=== PATIENT | male | born 1980 | race Caucasian/White ===

== ENCOUNTER 2021-11-24 18:39 | Inpatient (IN) | payer BC ==
[2021-11-24] MEDS ORDERED: ALBUTEROL HFA INHALER INHALATION STA (19:10)
[2021-11-24 19:32] LABS: Basophils % (A) 0 %; Eosinophils % (A) 0 %; HCT 45.8 % (39.0-53.0); HGB 15.9 gm/dL (13.0-17.5); Lymphocytes # (A) 0.7 k/uL (1.0-4.8); Lymphocytes % (A) 5 %; MCH 31.2 pg (25.0-35.0); MCHC 34.8 g/dL (31.0-37.0); MCV 89.8 fL (80.0-100.0); Mean Platelet Volume 8.3; Monocytes # (A) 0.5 k/uL (0-1.0); Monocytes % (A) 4 %; Neutrophils % (A) 90 %; Platelet Count 214 k/uL (150-450); RDW 12.6 % (11.5-15.5); WBC 13.3 k/uL (3.8-10.6)
[2021-11-24 19:45] LABS: Partial Thromboplastin Time 24.7 sec (22.0-30.0); Prothrombin Time 10.3 sec (9.0-12.0)
[2021-11-24 19:50] LABS: ALT 24 U/L (4-49); AST 61 U/L (17-59); African American GFR (CKD) >90 (>60 ml/min/1.73 sqM); Albumin 4.3 g/dL (3.5-5.0); Alkaline Phosphatase 39 U/L (38-126); Anion Gap 15 mmol/L; Blood Urea Nitrogen 28 mg/dL (9-20); Calcium 9.2 mg/dL (8.4-10.2); Carbon Dioxide 17 mmol/L (22-30); Chloride 105 mmol/L (98-107); Glucose 155 mg/dL (74-99); Non-African American GFR(CKD) >90 (>60 ml/min/1.73 sqM); Potassium 5.5 mmol/L (3.5-5.1); Sodium 137 mmol/L (137-145); Total Bilirubin 1.2 mg/dL (0.2-1.3); Total Protein 7.8 g/dL (6.3-8.2)
--- NOTE | 2021-11-24 19:55 | XR ---
EXAMINATION TYPE: XR chest 2V DATE OF EXAM: 11/24/2021 COMPARISON: NONE HISTORY: Difficulty breathing TECHNIQUE: 2 views FINDINGS: There is patchy interstitial infiltrates in the mid and lower lung mace bilaterally. Hear t size is normal. There is no heart failure. There is mild blunting right costophrenic angle. IMPRESSION: There are some patchy interstitial pneumonia with small right pleural effusion. Normal he art.
[2021-11-24] MEDS ORDERED: DEXAMETHASONE SOD PHOSPHATE 10 MG/ML 1 ML VIAL IVP STA (19:56)
[2021-11-24] MEDS ORDERED: SODIUM CHLORIDE 0.9% 1,000 ML IV STA (20:06)
--- NOTE | 2021-11-24 22:11 | CT ---
EXAMINATION TYPE: CT chest angio for PE DATE OF EXAM: 11/24/2021 COMPARISON: None HISTORY: pe CT DLP: mGycm Automated exposure control for dose reduction was used. CONTRAST: Performed with IV Contrast, patient injected with mL of Isovue 370. There are Three-D postprocessed images. There is patchy predominantly interstitial infiltrates throughout both lungs. There is some coalescen t density at the posterior lung bases. There is some patchy atelectasis posterior lung bases. Heart s ize is normal. There is no pericardial effusion. There are no hilar masses. There is no mediastinal a denopathy. Thoracic aorta is intact. There is no aneurysm or dissection. There is no evidence of filling defect in the pulmonary arteries. The thoracic spine is intact. There is no compression fracture. Sternum is intact. I see no bony dest ructive process. IMPRESSION: No evidence of pulmonary embolism. Patchy bilateral predominantly interstitial pneumonia. There is so me airspace infiltrate and atelectasis at the posterior lung bases.
--- NOTE | 2021-11-24 22:24 | ED ---
SOB HPI - General Chief Complaint: Shortness of Breath Stated Complaint: SOB,Low O2 Sat. Time Seen by Provider: 11/24/21 19:10 Source: patient, RN notes reviewed Mode of arrival: ambulatory Limitations: no limitations - History of Present Illness Initial Comments: Patient is a 40-year-old male that presents to the emergency department complaining of shortness of breath and cough for the past all days. He notes he did test positive for Covid. He notes that he was followed by his primary caregiver and steroids and inhaler. He came back to ER today due to increasing cough and continuing symptoms. He was otherwise well-appearing. He denied any other issues or complaints. He denied chest pain headache nausea vomiting diarrhea constipation fever fatigue chills. - Related Data Home Medications Medication Instructions Recorded Confirmed Acetaminophen Tab [Tylenol Tab] 1,000 mg PO Q6HR PRN 11/24/21 11/24/21 Albuterol Inhaler [Ventolin Hfa 2 puff INHALATION RT-QID PRN 11/24/21 11/24/21 Inhaler] Ascorbic Acid [Vitamin C] 1,000 mg PO DAILY 11/24/21 11/24/21 Benzonatate [Benzonatate Perle] 200 mg PO TID PRN 11/24/21 11/24/21 Ibuprofen [Motrin Ib] 800 mg PO Q8H PRN 11/24/21 11/24/21 Multivitamins, Thera [Multivitamin 1 tab PO DAILY 11/24/21 11/24/21 (formulary)] predniSONE [Deltasone] 20 mg PO TID 11/24/21 11/24/21 Allergies Allergy/AdvReac Type Severity Reaction Status Date / Time No Known Allergies Allergy Verified 11/24/21 21:51 Review of Systems ROS Statement: Those systems with pertinent positive or pertinent negative responses have been documented in the HPI. ROS Other: All systems not noted in ROS Statement are negative. Past Medical History Past Medical History: No Reported History History of Any Multi-Drug Resistant Organisms: None Reported Past Surgical History: No Surgical Hx Reported Past Psychological History: No Psychological Hx Reported Smoking Status: Never smoker Past Alcohol Use History: Occasional Past Drug Use History: None Reported General Exam Limitations: no limitations General appearance: alert, in no apparent distress Head exam: Present: atraumatic, normocephalic, normal inspection Eye exam: Present: normal appearance, PERRL, EOMI. Absent: scleral icterus, conjunctival injection, periorbital swelling ENT exam: Present: normal exam, mucous membranes moist Neck exam: Present: normal inspection Respiratory exam: Present: normal lung sounds bilaterally. Absent: respiratory distress, wheezes, rales, rhonchi, stridor Cardiovascular Exam: Present: regular rate, normal rhythm, normal heart sounds. Absent: systolic murmur, diastolic murmur, rubs, gallop, clicks GI/Abdominal exam: Present: soft, normal bowel sounds. Absent: distended, tenderness, guarding, rebound, rigid Extremities exam: Present: normal inspection, full ROM, normal capillary refill. Absent: tenderness, pedal edema, joint swelling, calf tenderness Neurological exam: Present: alert, oriented X3 Psychiatric exam: Present: normal affect, normal mood Skin exam: Present: warm, dry, intact, normal color. Absent: rash Course Vital Signs 11/24/21 11/24/21 11/24/21 19:01 22:30 22:36 Temperature 98.7 F Pulse Rate 86 79 79 Respiratory 20 18 18 Rate Blood Pressure 127/74 120/69 O2 Sat by Pulse 92 L 88 L 94 L Oximetry Procedures - [place] Protocol (Time Out) Nurse: Marbin Rivera Medical Decision Making - Medical Decision Making 40-year-old male complaining of shortness of breath and continuing Covid symptoms. Labs, chest x-ray, EKG, 10 mg Decadron, albuterol inhaler ordered. Labs: White blood cells 13.3, d-dimer 0.[address] of the chest ordered. CMP shows lactic acid 2.3 rest of labs are unremarkable. Chest x-ray and computed tomography scan both show interstitial pneumonia. computed tomography scan patient was coughing and was unable to breathe, 2 L of oxygen via nasal cannula ordered. discussed with Dr. Paz, Patient will be admitted for hypoxia and Covid. [facility] physicians group was consulted and will accept the admit. - Lab Data Result diagrams: 11/24/21 19:22 11/24/21 19:22 Lab Results 11/24/21 11/24/21 11/24/21 Range/Units 19:22 19:22 19: WBC 13.3 H (3.8-10.6) k/uL RBC 5.10 (4.30-5.90) m/uL Hgb 15.9 (13.0-17.5) gm/dL Hct 45.8 (39.0-53.0) % MCV 89.8 (80.0-100.0) fL MCH 31.2 (25.0-35.0) pg MCHC 34.8 (31.0-37.0) g/dL RDW 12.6 (11.5-15.5) % Plt Count 214 (150-450) k/uL MPV 8.3 Neutrophils % 90 % Lymphocytes % 5 % Monocytes % 4 % Eosinophils % 0 % Basophils % 0 % Neutrophils # 12.0 H (1.3-7.7) k/uL Lymphocytes # 0.7 L (1.0-4.8) k/uL Monocytes # 0.5 (0-1.0) k/uL Eosinophils # 0.0 (0-0.7) k/uL Basophils # 0.0 (0-0.2) k/uL PT 10.3 (9.0-12.0) sec INR 1.0 (<1.2) APTT 24.7 (22.0-30.0) sec D-Dimer 0.62 H (<0.60) mg/L FEU Sodium 137 (137-145) mmol/L Potassium 5.5 H (3.5-5.1) mmol/L Chloride 105 (98-107) mmol/L Carbon Dioxide 17 L (22-30) mmol/L Anion Gap 15 mmol/L BUN 28 H (9-20) mg/dL Creatinine 0.62 L (0.66-1.25) mg/dL Est GFR (CKD-EPI)AfAm >90 (>60 ml/min/1.73 sqM) Est GFR (CKD-EPI)NonAf >90 (>60 ml/min/1.73 sqM) Glucose 155 H (74-99) mg/dL Lactic Ac Sepsis Rflx Plasma Lactic Acid Rolly (0.7-2.0) mmol/L Calcium 9.2 (8.4-10.2) mg/dL Total Bilirubin 1.2 (0.2-1.3) mg/dL AST 61 H (17-59) U/L ALT 24 (4-49) U/L Alkaline Phosphatase 39 (38-126) U/L Troponin I (0.000-0.034) ng/mL NT-Pro-B Natriuret Pep pg/mL Total Protein 7.8 (6.3-8.2) g/dL Albumin 4.3 (3.5-5.0) g/dL 11/24/21 11/24/21 11/24/21 Range/Units 19:22 19:22 19:22 WBC (3.8-10.6) k/uL RBC (4.30-5.90) m/uL Hgb (13.0-17.5) gm/dL Hct (39.0-53.0) % MCV (80.0-100.0) fL MCH (25.0-35.0) pg MCHC (31.0-37.0) g/dL RDW (11.5-15.5) % Plt Count (150-450) k/uL MPV Neutrophils % % Lymphocytes % % Monocytes % % Eosinophils % % Basophils % % Neutrophils # (1.3-7.7) k/uL Lymphocytes # (1.0-4.8) k/uL Monocytes # (0-1.0) k/uL Eosinophils # (0-0.7) k/uL Basophils # (0-0.2) k/uL PT (9.0-12.0) sec INR (<1.2) APTT (22.0-30.0) sec D-Dimer (<0.60) mg/L FEU Sodium (137-145) mmol/L Potassium (3.5-5.1) mmol/L Chloride (98-107) mmol/L Carbon Dioxide (22-30) mmol/L Anion Gap mmol/L BUN (9-20) mg/dL Creatinine (0.66-1.25) mg/dL Est GFR (CKD-EPI)AfAm (>60 ml/min/1.73 sqM) Est GFR (CKD-EPI)NonAf (>60 ml/min/1.73 sqM) Glucose (74-99) mg/dL Lactic Ac Sepsis Rflx Plasma Lactic Acid Rolly 2.3 H* (0.7-2.0) mmol/L Calcium (8.4-10.2) mg/dL Total Bilirubin (0.2-1.3) mg/dL AST (17-59) U/L ALT (4-49) U/L Alkaline Phosphatase (38-126) U/L Troponin I <0.012 (0.000-0.034) ng/mL NT-Pro-B Natriuret Pep 104 pg/mL Total Protein (6.3-8.2) g/dL Albumin (3.5-5.0) g/dL 11/24/21 11/24/21 Range/Units 19:50 22:30 WBC (3.8-10.6) k/uL RBC (4.30-5.90) m/uL Hgb (13.0-17.5) gm/dL Hct (39.0-53.0) % MCV (80.0-100.0) fL MCH (25.0-35.0) pg MCHC (31.0-37.0) g/dL RDW (11.5-15.5) % Plt Count (150-450) k/uL MPV Neutrophils % % Lymphocytes % % Monocytes % % Eosinophils % % Basophils % % Neutrophils # (1.3-7.7) k/uL Lymphocytes # (1.0-4.8) k/uL Monocytes # (0-1.0) k/uL Eosinophils # (0-0.7) k/uL Basophils # (0-0.2) k/uL PT (9.0-12.0) sec INR (<1.2) APTT (22.0-30.0) sec D-Dimer (<0.60) mg/L FEU Sodium (137-145) mmol/L Potassium (3.5-5.1) mmol/L Chloride (98-107) mmol/L Carbon Dioxide (22-30) mmol/L Anion Gap mmol/L BUN (9-20) mg/dL Creatinine (0.66-1.25) mg/dL Est GFR (CKD-EPI)AfAm (>60 ml/min/1.73 sqM) Est GFR (CKD-EPI)NonAf (>60 ml/min/1.73 sqM) Glucose (74-99) mg/dL Lactic Ac Sepsis Rflx Y Plasma Lactic Acid Rolly 1.2 (0.7-2.0) mmol/L Calcium (8.4-10.2) mg/dL Total Bilirubin (0.2-1.3) mg/dL AST (17-59) U/L ALT (4-49) U/L Alkaline Phosphatase (38-126) U/L Troponin I (0.000-0.034) ng/mL NT-Pro-B Natriuret Pep pg/mL Total Protein (6.3-8.2) g/dL Albumin (3.5-5.0) g/dL - EKG Data -: EKG Interpreted by Me EKG shows normal: sinus rhythm Rate: normal EKG Comments: Ventricular rate 76 bpm, DC interval 150 ms, QRS duration 92 ms, QTC 429 ms, normal sinus rhythm, normal ECG. - Radiology Data Radiology results: report reviewed, image reviewed Chest x-ray: There is some patchy interstitial pneumonia with small right pleural effusion. CT of the chest: No evidence of pulmonary embolus. Patchy bilateral predominantly interstitial pneumonia there is some airspace infiltrate and atelectasis at the posterior lung bases. Disposition Clinical Impression: Pneumonia due to COVID-19 virus, Hypoxia Disposition: ADMITTED IP TO THIS HOSP Condition: Stable Is patient prescribed a controlled substance at d/c from ED?: No Referrals: Charles Hathaway DO [Primary Care Provider] - 1-2 days Time of Disposition: 23:03
[2021-11-24] MEDS ORDERED: NALOXONE 0.4 MG/ML 1 ML VIAL IV PRN (22:54)
[2021-11-24] MEDS: SODIUM CHLORIDE 0.9% 1,000 ML IV SCH (23:31)
--- NOTE | 2021-11-25 05:54 | P.HPIM ---
History of Present Illness H&P Date: 11/24/21 Chief Complaint: Hypoxemia 40-year-old male with no significant past medical history Patient comes in due to hypoxemia home. He was diagnosed with Covid about 12 days ago. Patient is unvaccinated. He initially had symptoms of upper respiratory infection coughing body aches loss of smell and taste however he started improving except for his coughing and shortness of breath. His has been checking his oxygen and noted his oxygen was low in the upper 80s today for which she recommended that she comes hospital for evaluation. He's been taking inhalers at home along with prednisone Upon evaluation in the ED his oxygen saturation was in the low 90s and then dropped to 8788 percent while on CAT scan, computed tomography scan showed interstitial pneumonia. This time patient tested negative for Covid in the hospital However he continues to report fevers and chills along with productive cough. He was initiated on oxygen his oxygen saturation has improved to 92% patient admitted for further monitoring and evaluation Patient is not a smoker, denies any drug abuse Review of Systems Pertinent positives as noted in HPI. All other systems were reviewed and are negative Past Medical History Past Medical History: No Reported History History of Any Multi-Drug Resistant Organisms: None Reported Past Surgical History: No Surgical Hx Reported Past Psychological History: No Psychological Hx Reported Smoking Status: Never smoker Past Alcohol Use History: Occasional Past Drug Use History: None Reported - Past Family History Family Family Medical History: No Reported History Medications and Allergies Home Medications Medication Instructions Recorded Confirmed Type Acetaminophen Tab [Tylenol Tab] 1,000 mg PO Q6HR PRN 11/24/21 11/24/21 History Albuterol Inhaler [Ventolin Hfa 2 puff INHALATION RT-QID PRN 11/24/21 11/24/21 History Inhaler] Ascorbic Acid [Vitamin C] 1,000 mg PO DAILY 11/24/21 11/24/21 History Benzonatate [Benzonatate Perle] 200 mg PO TID PRN 11/24/21 11/24/21 History Ibuprofen [Motrin Ib] 800 mg PO Q8H PRN 11/24/21 11/24/21 History Multivitamins, Thera [Multivitamin 1 tab PO DAILY 11/24/21 11/24/21 History (formulary)] predniSONE [Deltasone] 20 mg PO TID 11/24/21 11/24/21 History Allergies Allergy/AdvReac Type Severity Reaction Status Date / Time No Known Allergies Allergy Verified 11/24/21 21:51 Physical Exam Vitals: Vital Signs Temp Pulse Pulse Resp BP BP Pulse Ox 11/25/21 02:00 98.9 F 79 16 107/66 94 L 11/25/21 00:33 98.4 F 74 17 115/68 91 L 11/24/21 22:36 79 18 94 L 11/24/21 22:30 79 18 120/69 88 L 11/24/21 19:01 98.7 F 86 20 127/74 92 L Intake and Output 11/24/21 11/24/21 11/25/21 14:59 22:59 06:59 Other: Weight 97.522 kg 97.522 kg Constitutional: No acute distress, conversant, pleasant Eyes: Anicteric sclerae, moist conjunctiva, Pupils equal round reactive to light ENMT: NC/AT Oropharynx clear, no erythema, or exudates Neck: Supple, no masses, or JVD No carotid bruits No thyromegaly Lungs: Clear to auscultation Clear to percussion Normal respiratory effort, no accessory muscle use Cardiovascular: Heart regular in rate and rhythm, No murmurs, gallops, or rubs No peripheral edema Abdominal: Soft Nontender, no guarding, rebound or rigidity Abdomen moving with respiration Normoactive bowel sounds No hepatomegaly, No splenomegaly No palpable mass No abdominal wall hernia noted Skin: Normal temperature, tone, texture, turgor No induration No subcutaneous nodules No rash, lesions No ulcers Extremities: No digital cyanosis No clubbing Pedal pulses intact and symmetrical Radial pulses intact and symmetrical No calf tenderness Psychiatric: Alert and oriented to person, place and time Appropriate affect fair judgement Neuro Muscles Strength 5/5 in all 4 extremities Sensation to light touch grossly present throughout Cranial nerves II-XII grossly intact No focal sensory deficits Lymphatics: no palpable cervical or supraclavicular , or inguinal lymph nodes Results CBC & Chem 7: 11/24/21 19:22 11/24/21 19:22 Labs: Abnormal Lab Results - Last 24 Hours (Table) 11/24/21 11/24/21 11/24/21 Range/Units 19:22 19:22 19: WBC 13.3 H (3.8-10.6) k/uL Neutrophils # 12.0 H (1.3-7.7) k/uL Lymphocytes # 0.7 L (1.0-4.8) k/uL D-Dimer 0.62 H (<0.60) mg/L FEU Potassium 5.5 H (3.5-5.1) mmol/L Carbon Dioxide 17 L (22-30) mmol/L BUN 28 H (9-20) mg/dL Creatinine 0.62 L (0.66-1.25) mg/dL Glucose 155 H (74-99) mg/dL Plasma Lactic Acid Rolly (0.7-2.0) mmol/L AST 61 H (17-59) U/L 11/24/21 Range/Units 19:22 WBC (3.8-10.6) k/uL Neutrophils # (1.3-7.7) k/uL Lymphocytes # (1.0-4.8) k/uL D-Dimer (<0.60) mg/L FEU Potassium (3.5-5.1) mmol/L Carbon Dioxide (22-30) mmol/L BUN (9-20) mg/dL Creatinine (0.66-1.25) mg/dL Glucose (74-99) mg/dL Plasma Lactic Acid Rolly 2.3 H* (0.7-2.0) mmol/L AST (17-59) U/L Thrombosis Risk Factor Assmnt - Choose All That Apply Each Factor Represents 1 point: Age 41-60 years Thrombosis Risk Factor Assessment Total Risk Factor Score: 1 Thrombosis Risk Factor Assessment Level: Low Risk Assessment and Plan Assessment: Acute hypoxic respiratory failure Post Covid pneumonia Supportive care Initiated on supplemental oxygen Dexamethasone DVT prophylaxis with Lovenox Supportive care Symptomatically control Tessalon Perles for cough when necessary Albuterol inhaler as needed Patient is full code DVT prophylaxis Lovenox daily Anticipated length of stay less than 2 midnights
[2021-11-25] MEDS ORDERED: BENZONATATE 100 MG CAP PO PRN (06:00)
[2021-11-25] MEDS: SODIUM CHLORIDE 0.9% 1,000 ML IV SCH ×3 (09:14→22:00)
[2021-11-25 09:25] LABS: Basophils % (A) 0 %; Eosinophils % (A) 0 %; HCT 42.3 % (39.0-53.0); HGB 14.2 gm/dL (13.0-17.5); Lymphocytes # (A) 0.6 k/uL (1.0-4.8); Lymphocytes % (A) 5 %; MCH 30.6 pg (25.0-35.0); MCHC 33.4 g/dL (31.0-37.0); MCV 91.4 fL (80.0-100.0); Mean Platelet Volume 7.9; Monocytes # (A) 0.5 k/uL (0-1.0); Monocytes % (A) 4 %; Neutrophils # (A) 11.3 k/uL (1.3-7.7); Neutrophils % (A) 90 %; Platelet Count 221 k/uL (150-450); RBC 4.63 m/uL (4.30-5.90); RDW 12.8 % (11.5-15.5); WBC 12.5 k/uL (3.8-10.6)
[2021-11-25 09:41] LABS: African American GFR (CKD) >90 (>60 ml/min/1.73 sqM); Anion Gap 7 mmol/L; Blood Urea Nitrogen 19 mg/dL (9-20); Calcium 8.4 mg/dL (8.4-10.2); Carbon Dioxide 23 mmol/L (22-30); Chloride 112 mmol/L (98-107); Glucose 153 mg/dL (74-99); Magnesium 2.3 mg/dL (1.6-2.3); Non-African American GFR(CKD) >90 (>60 ml/min/1.73 sqM); Potassium 4.7 mmol/L (3.5-5.1); Sodium 142 mmol/L (137-145)
[2021-11-25] MEDS: ENOXAPARIN 40 MG/0.4 ML SYRINGE SQ SCH (10:25)
[2021-11-25] MEDS: DEXAMETHASONE SOD PHOSPHATE 10 MG/ML 1 ML VIAL IVP SCH (10:25)
--- NOTE | 2021-11-25 12:20 | P.PN ---
Subjective Progress Note Date: 11/25/21 Principal diagnosis: sob Doing well. Still having sob when he moves around. On 4L of O2 now. Still having cough. No chest pain. Objective - Vital Signs Vital signs: Vital Signs Temp 98.2 F 11/25/21 09:20 Pulse 72 11/25/21 09:20 Resp 17 11/25/21 09:20 BP 102/61 11/25/21 09:20 Pulse Ox 93 L 11/25/21 09:20 Intake & Output 11/24/21 11/25/21 11/25/21 18:59 06:59 18:59 Intake Total 1040 Balance 1040 Weight 97.522 kg Intake: Intake, IV Titration 1040 Amount Sodium Chloride 0.9% 1, 1040 000 ml @ 130 mls/hr IV . Q7H42M [facility] Rx#:[id number] Other: # Voids 1 - Exam Constitutional: No acute distress, conversant, pleasant Eyes:Anicteric sclerae, moist conjunctiva, no lid-lag, PERRLA, ENMT: Oropharynx clear, no erythema, exudates Neck: Supple, FROM, no masses, or JVD, No carotid bruits, No thyromegaly Lungs: Clear to auscultation, Clear to percussion, Normal respiratory effort, no accessory muscle use Cardiovascular: Heart regular in rate and rhythm, No murmurs, gallops, or rubs, No peripheral edema Abdominal: Soft, Nontender, no guarding, rebound or rigidity, Normoactive bowel sounds, No hepatomegaly, No splenomegaly, No palpable mass Skin: Normal temperature, tone, texture, turgor, no induration, No subcutaneous nodules, No rash, lesions, No ulcers Extremities: No digital cyanosis, No clubbing, Pedal pulses intact and symmetrical, Radial pulses intact and symmetrical, No calf tenderness Psychiatric: Alert and oriented to person, place and time, appropriate affect, intact judgement Neuro: Muscles Strength 5/5 in all 4 extremities, Sensation to light touch grossly present throughout, Cranial nerves II-XII grossly intact, no focal sensory deficits - Labs CBC & Chem 7: 11/25/21 09:15 11/25/21 09:15 Labs: Abnormal Lab Results - Last 24 Hours (Table) 11/24/21 11/24/21 11/24/21 Range/Units 19:22 19:22 19:22 WBC 13.3 H (3.8-10.6) k/uL Neutrophils # 12.0 H (1.3-7.7) k/uL Lymphocytes # 0.7 L (1.0-4.8) k/uL D-Dimer 0.62 H (<0.60) mg/L FEU Potassium 5.5 H (3.5-5.1) mmol/L Chloride (98-107) mmol/L Carbon Dioxide 17 L (22-30) mmol/L BUN 28 H (9-20) mg/dL Creatinine 0.62 L (0.66-1.25) mg/dL Glucose 155 H (74-99) mg/dL Plasma Lactic Acid Rolly (0.7-2.0) mmol/L AST 61 H (17-59) U/L 11/24/21 11/25/21 11/25/21 Range/Units 19:22 09:15 09:15 WBC 12.5 H (3.8-10.6) k/uL Neutrophils # 11.3 H (1.3-7.7) k/uL Lymphocytes # 0.6 L (1.0-4.8) k/uL D-Dimer (<0.60) mg/L FEU Potassium (3.5-5.1) mmol/L Chloride 112 H (98-107) mmol/L Carbon Dioxide (22-30) mmol/L BUN (9-20) mg/dL Creatinine 0.61 L (0.66-1.25) mg/dL Glucose 153 H (74-99) mg/dL Plasma Lactic Acid Rolly 2.3 H* (0.7-2.0) mmol/L AST (17-59) U/L Assessment and Plan Plan: Acute hypoxic respiratory failure secondary to covid pneumonia Supportive care Initiated on supplemental oxygen, currently on 4 L Dexamethasone DVT prophylaxis with Lovenox Tessalon Perles for cough when necessary Albuterol inhaler as needed DVT prophylaxis Lovenox daily
--- NOTE | 2021-11-25 14:35 | P.CNPUL ---
History of Present Illness Consult date: 11/25/21 Requesting physician: Ady Greer Reason for consult: dyspnea, abnormal CXR/CT Chief complaint: Fever, shortness of breath, cough History of present illness: This a very pleasant 40-year-old gentleman who has no significant past medical history. On November 13 he started having symptoms of fever or shortness of breath cough and congestion. He states he tested positive then. He is treated by his PCP with inhalers and prednisone. His symptoms did not improve and he presented here yesterday for the same. He was found to be positive for COVID-19 pneumonia. He is outside the window for Remdesivir. He is seen today in consultation on the regular medical floor. Awake and alert in no acute distress. He's on 4 L nasal cannula to maintain O2 saturation 93%. He has normal saline at 130 ML's per hour. He's been initiated on Decadron and Lovenox. We will initiate vitamins. His x-ray shows patchy interstitial pneumonia. CT angiogram shows no evidence of pulmonary embolism. There is patchy bilateral interstitial pneumonia consistent with COVID-19 infection. White count 12.5. Hemoglobin 14.2. Lymphocytes 0.6. Sodium 142. Potassium 4.7. Creatinine 0.61. COVID-19 19 screen here is negative. He is seen today in consultation on the regular medical floor. He is currently sitting up in a chair at the bedside. Awake and alert in no acute distress. He is maintaining O2 saturations at 93% on 4 L/m per nasal cannula. He's been afebrile. Hemodynamically stable. He's been initiated on to Decadron Lovenox, vitamin supplements Review of Systems REVIEW OF SYSTEMS: CONSTITUTIONAL: Positive for fever. Denies any recent significant weight loss or weight gain. EYES: Denies change in vision. EARS, NOSE, MOUTH, THROAT: Denies headaches, denies sore throat. CARDIOVASCULAR: Denies chest pain, palpitations or syncopal episodes. RESPIRATORY: Positive for shortness of breath, cough, congestion no hemoptysis. GASTROINTESTINAL: Denies change in appetite, denies abdominal pain GENITOURINARY: Denies hematuria, denies infections. MUSKULOSKELETAL: Denies pain, denies swelling. INTEGUMENTARY: Denies rash, denies eczema. NEUROLOGICAL: Denies recent memory loss, no recent seizure activity. PSYCHIATRIC: Denies anxiety, denies depression. HEMATOLOGIC/LYMPHATIC: Denies anemia, denies enlarged lymph nodes. Past Medical History Past Medical History: No Reported History History of Any Multi-Drug Resistant Organisms: None Reported Past Surgical History: No Surgical Hx Reported Past Psychological History: No Psychological Hx Reported Smoking Status: Never smoker Past Alcohol Use History: Occasional Past Drug Use History: None Reported - Past Family History Family Family Medical History: No Reported History Medications and Allergies Home Medications Medication Instructions Recorded Confirmed Type Acetaminophen Tab [Tylenol Tab] 1,000 mg PO Q6HR PRN 11/24/21 11/24/21 History Albuterol Inhaler [Ventolin Hfa 2 puff INHALATION RT-QID PRN 11/24/21 11/24/21 History Inhaler] Ascorbic Acid [Vitamin C] 1,000 mg PO DAILY 11/24/21 11/24/21 History Benzonatate [Benzonatate Perle] 200 mg PO TID PRN 11/24/21 11/24/21 History Ibuprofen [Motrin Ib] 800 mg PO Q8H PRN 11/24/21 11/24/21 History Multivitamins, Thera [Multivitamin 1 tab PO DAILY 11/24/21 11/24/21 History (formulary)] predniSONE [Deltasone] 20 mg PO TID 11/24/21 11/24/21 History Allergies Allergy/AdvReac Type Severity Reaction Status Date / Time No Known Allergies Allergy Verified 11/24/21 21:51 Physical Exam Vitals: Vital Signs Temp Pulse Pulse Resp BP BP Pulse Ox 11/25/21 09:20 98.2 F 72 17 102/61 93 L 11/25/21 09:02 93 L 11/25/21 06:22 98.1 F 80 16 105/49 93 L 11/25/21 02:00 98.9 F 79 16 107/66 94 L 11/25/21 00:33 98.4 F 74 17 115/68 91 L 11/24/21 22:36 79 18 94 L 11/24/21 22:30 79 18 120/69 88 L 11/24/21 19:01 98.7 F 86 20 127/74 92 L Intake and Output 11/24/21 11/25/21 11/25/21 22:59 06:59 14:59 Intake Total 1040 Balance 1040 Intake: Intake, IV Titration 1040 Amount Sodium Chloride 0.9% 1, 1040 000 ml @ 130 mls/hr IV . Q7H42M [facility] Rx#:[id number] Other: # Voids 1 Weight 97.522 kg 97.522 kg GENERAL EXAM: Alert, pleasant 40-year-old male patient, on 4 L nasal cannula, fairly comfortable in no apparent distress. HEAD: Normocephalic. EYES: Normal reaction of pupils, equal size. NOSE: Clear with pink turbinates. THROAT: No erythema or exudates. NECK: No masses, no JVD. CHEST: No chest wall deformity. LUNGS: Equal air entry with crackles in the bilateral bases. CVS: S1 and S2 normal with no audible murmur, regular rhythm. ABDOMEN: No hepatosplenomegaly, normal bowel sounds, no guarding or rigidity. SPINE: No scoliosis or deformity SKIN: No rashes CENTRAL NERVOUS SYSTEM: No focal deficits, tone is normal in all 4 extremities. EXTREMITIES: There is no peripheral edema. No clubbing, no cyanosis. Peripheral pulses are intact. Results - Laboratory Findings CBC and BMP: 11/25/21 09:15 11/25/21 09:15 PT/INR, D-dimer PT 10.3 sec (9.0-12.0) 11/24/21 19:22 INR 1.0 (<1.2) 11/24/21 19:22 D-Dimer 0.62 mg/L FEU (<0.60) H 11/24/21 19:22 Abnormal lab findings: Abnormal Labs 11/24/21 11/24/21 11/24/21 19:22 19:22 19:22 WBC 13.3 H Neutrophils # 12.0 H Lymphocytes # 0.7 L D-Dimer 0.62 H Potassium 5.5 H Chloride Carbon Dioxide 17 L BUN 28 H Creatinine 0.62 L Glucose 155 H Plasma Lactic Acid Rolly AST 61 H 11/24/21 11/25/21 11/25/21 19:22 09:15 09:15 WBC 12.5 H Neutrophils # 11.3 H Lymphocytes # 0.6 L D-Dimer Potassium Chloride 112 H Carbon Dioxide BUN Creatinine 0.61 L Glucose 153 H Plasma Lactic Acid Rolly 2.3 H* AST - Diagnostic Findings Chest x-ray: image reviewed CT scan - chest: image reviewed Assessment and Plan Assessment: 1 Acute hypoxemic respiratory failure secondary COVID-19 pneumonia. Diagnosed in the outpatient setting. Outside the window for Remdesivir. Currently on 4 L nasal cannula. Not vaccinated. Plan: The patient was seen and evaluated today X-ray, CAT scans and labs reviewed Continue Decadron, Lovenox, vitamin supplements Titrate the FiO2 as tolerated Increase his activity as tolerated Add an incentive spirometer We will continue to follow and make further recommendations based on his clinical status I, the cosigning physician, performed a history & physical examination of the patient. Lungs sounds faint crackles in the posterior bases. Maintaining good O2 saturations in the 90s on 4 L/m per nasal cannula. I discussed the assessment and plan of care with my nurse practitioner, Magdalene Llanes. I attest to the above consultation as dictated by her. Time with Patient: Greater than 30
[2021-11-25 15:16] LABS: C Reactive Protein 3.9 mg/dL (<1.0)
[2021-11-26] MEDS: CHOLECALCIFEROL 25 MCG (1000 IU) TABLET PO SCH (08:03)
[2021-11-26] MEDS: ASCORBIC ACID 500 MG TAB PO SCH (08:03)
[2021-11-26] MEDS: DEXAMETHASONE SOD PHOSPHATE 10 MG/ML 1 ML VIAL IVP SCH (08:03)
[2021-11-26] MEDS: ZINC SULFATE 220 MG CAP PO SCH (08:03)
[2021-11-26] MEDS: ENOXAPARIN 40 MG/0.4 ML SYRINGE SQ SCH (08:03)
[2021-11-26] MEDS: SODIUM CHLORIDE 0.9% 1,000 ML IV SCH (08:03)
[2021-11-26 10:55] LABS: Basophils # (A) 0.02 X 10*3/uL (0.00-0.10); Basophils % (A) 0.1 %; Eosinophils # (A) 0 X 10*3/uL (0.04-0.35); Eosinophils % (A) 0 %; HCT 41.9 % (39.6-50.0); HGB 13.9 g/dL (13.0-17.0); Lymphocytes # (A) 0.84 X 10*3/uL (0.90-5.00); Lymphocytes % (A) 6.1 %; MCH 30.8 pg (27.0-32.0); MCHC 33.2 g/dL (32.0-37.0); MCV 92.9 fL (80.0-97.0); Mean Platelet Volume 10.8 fL (9.5-12.2); Monocytes # (A) 0.84 X 10*3/uL (0.20-1.00); Monocytes % (A) 6.1 %; Neutrophils # (A) 12.08 X 10*3/uL (1.80-7.70); Neutrophils % (A) 87.1 %; Platelet Count 232 X 10*3/uL (140-440); RBC 4.51 X 10*6/uL (4.40-5.60); RDW 13.3 % (11.5-14.5); WBC 13.86 X 10*3/uL (4.50-10.00)
[2021-11-26 12:12] LABS: Anion Gap 15.8 mmol/L (10.00-18.00); BUN/Creat Ratio 23.49 Ratio (12.00-20.00); Blood Urea Nitrogen 16.7 mg/dL (9.0-27.0); Calcium 8.6 mg/dL (8.7-10.3); Carbon Dioxide 18.3 mmol/L (20.0-27.5); Magnesium 2.3 mg/dL (1.5-2.4); Non-African American GFR(CKD) 116.5 (60.0-200.0)
--- NOTE | 2021-11-26 13:26 | P.PN ---
Subjective Progress Note Date: 11/26/21 Principal diagnosis: sob Doing well. STill requring 4L of NC. Objective - Vital Signs Vital signs: Vital Signs Temp 97.3 F L 11/26/21 09:06 Pulse 56 L 11/26/21 09:06 Resp 17 11/26/21 09:06 BP 111/68 11/26/21 09:06 Pulse Ox 97 11/26/21 09:06 Intake & Output 11/25/21 11/26/21 11/26/21 18:59 06:59 18:59 Intake Total 1040 1600 400 Balance 1040 1600 400 Intake: Intake, IV Titration 1040 600 400 Amount Sodium Chloride 0.9% 1, 1040 600 400 000 ml @ 50 mls/hr IV . Q20H [facility] Rx#:[id number] Oral 1000 Other: # Voids 2 - Exam Constitutional: No acute distress, conversant, pleasant Eyes:Anicteric sclerae, moist conjunctiva, no lid-lag, PERRLA, ENMT: Oropharynx clear, no erythema, exudates Neck: Supple, FROM, no masses, or JVD, No carotid bruits, No thyromegaly Lungs: Clear to auscultation, Clear to percussion, Normal respiratory effort, no accessory muscle use Cardiovascular: Heart regular in rate and rhythm, No murmurs, gallops, or rubs, No peripheral edema Abdominal: Soft, Nontender, no guarding, rebound or rigidity, Normoactive bowel sounds, No hepatomegaly, No splenomegaly, No palpable mass Skin: Normal temperature, tone, texture, turgor, no induration, No subcutaneous nodules, No rash, lesions, No ulcers Extremities: No digital cyanosis, No clubbing, Pedal pulses intact and sy mmetrical, Radial pulses intact and symmetrical, No calf tenderness Psychiatric: Alert and oriented to person, place and time, appropriate affect, intact judgement Neuro: Muscles Strength 5/5 in all 4 extremities, Sensation to light touch grossly present throughout, Cranial nerves II-XII grossly intact, no focal sensory deficits - Labs CBC & Chem 7: 11/26/21 06:56 11/26/21 06:56 Labs: Abnormal Lab Results - Last 24 Hours (Table) 11/25/21 11/26/21 11/26/21 Range/Units 14:51 06:56 06:56 WBC 13.86 H (4.50-10.00) X 10*3/uL Immature Gran # 0.08 H (0.00-0.04) X 10*3/uL Neutrophils # 12.08 H (1.80-7.70) X 10*3/uL Lymphocytes # 0.84 L (0.90-5.00) X 10*3/uL Eosinophils # 0 L (0.04-0.35) X 10*3/uL Carbon Dioxide 18.3 L (20.0-27.5) mmol/L BUN/Creatinine Ratio 23.49 H (12.00-20.00) Ratio Calcium 8.6 L (8.7-10.3) mg/dL Lactate Dehydrogenase 787 H (313-618) U/L C-Reactive Protein 3.9 H (<1.0) mg/dL Assessment and Plan Plan: Acute hypoxic respiratory failure secondary to covid pneumonia Supportive care Initiated on supplemental oxygen, currently on 4 L Dexamethasone DVT prophylaxis with Lovenox Tessalon Perles for cough when necessary Albuterol inhaler as needed DVT prophylaxis Lovenox daily
--- NOTE | 2021-11-26 13:34 | P.PN ---
Subjective Progress Note Date: 11/26/21 Principal diagnosis: Dyspnea, cough, hypoxia This a very pleasant 40-year-old gentleman who has no significant past medical history. On November 13 he started having symptoms of fever or shortness of breath cough and congestion. He states he tested positive then. He is treated by his PCP with inhalers and prednisone. His symptoms did not improve and he presented here yesterday for the same. He was found to be positive for COVID-19 pneumonia. He is outside the window for Remdesivir. He is seen today in consultation on the regular medical floor. Awake and alert in no acute distress. He's on 4 L nasal cannula to maintain O2 saturation 93%. He has normal saline at 130 ML's per hour. He's been initiated on Decadron and Lovenox. We will initiate vitamins. His x-ray shows patchy interstitial pneumonia. CT angiogram shows no evidence of pulmonary embolism. There is patchy bilateral interstitial pneumonia consistent with COVID-19 infection. White count 12.5. Hemoglobin 14.2. Lymphocytes 0.6. Sodium 142. Potassium 4.7. Creatinine 0.61. COVID-19 19 screen here is negative. He is seen today in consultation on the regular medical floor. He is currently sitting up in a chair at the bedside. Awake and alert in no acute distress. He is maintaining O2 saturations at 93% on 4 L/m per nasal cannula. He's been afebrile. Hemodynamically stable. He's been initiated on to Decadron Lovenox, vitamin supplements On 11/26/2021 patient seen in follow-up on medical surgical floor. He is awake and alert, in no acute distress, he is on 4 L of oxygen pulse ox is 97%, subsequently O2 was dropped down to 3 L, he is breathing comfortably, he states his coughing is improving, although still does have occasional coughing fits especially with exertion, no phlegm production, continues on Decadron, continues on prophylactic dose Lovenox, his pro-calcitonin was negative at 0.04, he was outside the window for Remdesivir, he continues on multivitamins, appetite is fair, no nausea vomiting or diarrhea, no acute events overnight. His labs have been reviewed, his white blood cell count is 13.8, hemoglobin is 13.9, d-dimer was negative at 0.59, his electrolytes and renal profile were unremarkable, his LDH was 787, and CRP was 3.9, troponin was negative, proBNP was within normal limits at 104. Objective - Vital Signs Vital signs: Vital Signs Temp 97.3 F L 11/26/21 09:06 Pulse 56 L 11/26/21 09:06 Resp 17 11/26/21 09:06 BP 111/68 11/26/21 09:06 Pulse Ox 97 11/26/21 09:06 Intake & Output 11/25/21 11/26/21 11/26/21 18:59 06:59 18:59 Intake Total 1040 1600 400 Balance 1040 1600 400 Intake: Intake, IV Titration 1040 600 400 Amount Sodium Chloride 0.9% 1, 1040 600 400 000 ml @ 50 mls/hr IV . Q20H [facility] Rx#:[id number] Oral 1000 Other: # Voids 2 - Exam GENERAL EXAM: Alert, very pleasant, 40-year-old white cell, on 4 L oxygen with pulse ox of 97%, comfortable in no apparent distress. HEAD: Normocephalic/atraumatic. EYES: Normal reaction of pupils, equal size. Conjunctiva pink, sclera white. NOSE: Clear with pink turbinates. THROAT: No erythema or exudates. NECK: No masses, no JVD, no thyroid enlargement, no adenopathy. CHEST: No chest wall deformity. Symmetrical expansion. LUNGS: Equal air entry with diffuse inspiratory crackles CVS: Regular rate and rhythm, normal S1 and S2, no gallops, no murmurs, no rubs ABDOMEN: Soft, nontender. No hepatosplenomegaly, normal bowel sounds, no guarding or rigidity. EXTREMITIES: No clubbing, no edema, no cyanosis, 2+ pulses and upper and lower extremities. MUSCULOSKELETAL: Muscle strength and tone normal. SPINE: No scoliosis or deformity SKIN: No rashes CENTRAL NERVOUS SYSTEM: Alert and oriented -3. No focal deficits, tone is normal in all 4 extremities. PSYCHIATRIC: Alert and oriented -3. Appropriate affect. Intact judgment and insight. - Labs CBC & Chem 7: 11/26/21 06:56 11/26/21 06:56 Labs: Abnormal Lab Results - Last 24 Hours (Table) 11/25/21 11/26/21 11/26/21 Range/Units 14:51 06:56 06:56 WBC 13.86 H (4.50-10.00) X 10*3/uL Immature Gran # 0.08 H (0.00-0.04) X 10*3/uL Neutrophils # 12.08 H (1.80-7.70) X 10*3/uL Lymphocytes # 0.84 L (0.90-5.00) X 10*3/uL Eosinophils # 0 L (0.04-0.35) X 10*3/uL Carbon Dioxide 18.3 L (20.0-27.5) mmol/L BUN/Creatinine Ratio 23.49 H (12.00-20.00) Ratio Calcium 8.6 L (8.7-10.3) mg/dL Lactate Dehydrogenase 787 H (313-618) U/L C-Reactive Protein 3.9 H (<1.0) mg/dL Assessment and Plan Plan: Assessment: #1. Acute hypoxic respiratory failure related to acute COVID-19 pneumonia, diagnosed in the outpatient setting. Patient presented to the emergency department on 11/24/2021, onset of symptoms was on 11/13/2021. Patient is outside the window for Remdesivir, he is currently on Decadron 6 mg, prophylactic Lovenox, and multivitamins, CT angiogram shows no evidence of pulmonary embolism #2. Elevated inflammatory markers related to the above Plan: Continue current medical treatment Continue Decadron, continue Lovenox and multivitamins Patient is breathing easier, His coughing is improving Wean FiO2 Continue to monitor him for any worsening dyspnea or hypoxia If remains stable we may consider discharge home in the next 24-48 hours I performed a history & physical examination of the patient and discussed their management with my nurse practitioner, Suyapa Ramos. I reviewed the nurse practitioner's note and agree with the documented findings and plan of care. Lung sounds are positive for dim breath sounds throughout the lung mace. The findings and the impression was discussed with the patient. I attest to the documentation by the nurse practitioner. Time with Patient: Less than 30
[2021-11-27 06:31] VITALS: TEMP 97.8
--- NOTE | 2021-11-27 07:52 | XR ---
EXAMINATION TYPE: XR chest 1V portable DATE OF EXAM: 11/27/2021 CLINICAL HISTORY: Difficulty breathing and covid progress study. TECHNIQUE: Single AP portable upright view of the chest is obtained. COMPARISON: Chest x-ray and CTA chest from 3 days earlier FINDINGS: Bilateral multifocal increased opacities redemonstrated. No pleural effusion or pneumothor ax seen bilaterally. Cardiac silhouette size stable within normal limits. Osseous structures are inta ct. IMPRESSION: Bilateral multifocal opacities consistent with covid-19 infection remain present. No sign ificant change from most recent prior studies.
[2021-11-27] MEDS: ASCORBIC ACID 500 MG TAB PO SCH (08:41)
[2021-11-27] MEDS: ZINC SULFATE 220 MG CAP PO SCH (08:41)
[2021-11-27] MEDS: CHOLECALCIFEROL 25 MCG (1000 IU) TABLET PO SCH (08:41)
[2021-11-27] MEDS: DEXAMETHASONE SOD PHOSPHATE 10 MG/ML 1 ML VIAL IVP SCH (08:42)
[2021-11-27] MEDS: ENOXAPARIN 40 MG/0.4 ML SYRINGE SQ SCH (08:42)
[2021-11-27 11:17] VITALS: BP 115/75; PULSE 60; RESP 19
[2021-11-27 11:38] LABS: C Reactive Protein 1.1 mg/dL (0.00-0.80)
--- NOTE | 2021-11-27 12:43 | P.DS ---
Providers Date of admission: 11/24/21 22:34 Expected date of discharge: 11/27/21 Attending physician: Ady Greer MD Consults: 11/24/21 22:56 Consult Physician Urgent Consulting Provider: Julio Padgett Reason/Comments: hypoxia Do you want consulting provider notified?: Yes Primary care physician: [facility] Course: 40-year-old male with no significant past medical history who presented with low O2 sats. He was diagnosed with Covid about 12 days prior to admission. Patient is unvaccinated. He initially had symptoms of upper respiratory infection including coughing, body aches, loss of smell and taste, symptoms gradually improved except for his coughing and shortness of breath. His has been checking his oxygen and noted his oxygen was low in the upper 80s. He's been taking inhalers at home along with prednisone. Patient is not a smoker, denies any drug abuse Upon evaluation in the ED his oxygen saturation was in the low 90s and then dropped to 8788 percent while on CAT scan. Chest computed tomography scan showed interstitial pneumonia. He was initiated on oxygen his oxygen saturation has improved to 92% patient admitted for further monitoring and evaluation. He was started on decadron IV as well as lovenox for DVT prophylaxis. He was seen by pulmonary. He was not a candidate for remdisivir as he was out of the therapeutic window. Through the hospitalization his symptoms improoved. His O2 sats were assessed today by walking and he only dropped to 89%. Did not qualify for home O2. He remained stable. He will be discharged in a stable condition. Time for discharge 36 min Patient Condition at Discharge: Stable Plan - Discharge Summary Discharge Rx Participant: Yes New Discharge Prescriptions: New Dexamethasone [Decadron] 6 mg PO DAILY 7 Days #7 tablet Apixaban [Eliquis] 2.5 mg PO BID 7 Days #14 tab Continue Multivitamins, Thera [Multivitamin (formulary)] 1 tab PO DAILY Ascorbic Acid [Vitamin C] 1,000 mg PO DAILY Acetaminophen Tab [Tylenol] 1,000 mg PO Q6HR PRN PRN Reason: Pain Or Fever > 100.5 Ibuprofen [Motrin Ib] 800 mg PO Q8H PRN PRN Reason: Pain Or Fever > 100.5 Benzonatate [Benzonatate Perle] 200 mg PO TID PRN PRN Reason: Cough Albuterol Inhaler [Ventolin Hfa Inhaler] 2 puff INHALATION RT-QID PRN PRN Reason: Shortness Of Breath Discontinued predniSONE [Deltasone] 20 mg PO TID Discharge Medication List Acetaminophen Tab [Tylenol] 1,000 mg PO Q6HR PRN 11/24/21 [History] Albuterol Inhaler [Ventolin Hfa Inhaler] 2 puff INHALATION RT-QID PRN 11/24/21 [History] Ascorbic Acid [Vitamin C] 1,000 mg PO DAILY 11/24/21 [History] Benzonatate [Benzonatate Perle] 200 mg PO TID PRN 11/24/21 [History] Ibuprofen [Motrin Ib] 800 mg PO Q8H PRN 11/24/21 [History] Multivitamins, Thera [Multivitamin (formulary)] 1 tab PO DAILY 11/24/21 [History] Apixaban [Eliquis] 2.5 mg PO BID 7 Days #14 tab 11/27/21 [Rx] Dexamethasone [Decadron] 6 mg PO DAILY 7 Days #7 tablet 11/27/21 [Rx] Follow up Appointment(s)/Referral(s): Charles Hathaway DO [Primary Care Provider] - 1-2 days (patient to call after D/C and schedule appointment PER DOCTORS OFFICE) Patient Instructions/Handouts: Coronavirus Disease 2019 (COVID-19) Discharge/Stand Alone Forms: Work/Release Restrictions Form
--- NOTE | 2021-11-27 16:09 | P.PN ---
Subjective Progress Note Date: 11/27/21 Principal diagnosis: Dyspnea, cough, hypoxia This a very pleasant 40-year-old gentleman who has no significant past medical history. On November 13 he started having symptoms of fever or shortness of breath cough and congestion. He states he tested positive then. He is treated by his PCP with inhalers and prednisone. His symptoms did not improve and he presented here yesterday for the same. He was found to be positive for COVID-19 pneumonia. He is outside the window for Remdesivir. He is seen today in consultation on the regular medical floor. Awake and alert in no acute distress. He's on 4 L nasal cannula to maintain O2 saturation 93%. He has normal saline at 130 ML's per hour. He's been initiated on Decadron and Lovenox. We will initiate vitamins. His x-ray shows patchy interstitial pneumonia. CT angiogram shows no evidence of pulmonary embolism. There is patchy bilateral interstitial pneumonia consistent with COVID-19 infection. White count 12.5. Hemoglobin 14.2. Lymphocytes 0.6. Sodium 142. Potassium 4.7. Creatinine 0.61. COVID-19 19 screen here is negative. He is seen today in consultation on the regular medical floor. He is currently sitting up in a chair at the bedside. Awake and alert in no acute distress. He is maintaining O2 saturations at 93% on 4 L/m per nasal cannula. He's been afebrile. Hemodynamically stable. He's been initiated on to Decadron Lovenox, vitamin supplements On 11/26/2021 patient seen in follow-up on medical surgical floor. He is awake and alert, in no acute distress, he is on 4 L of oxygen pulse ox is 97%, subsequently O2 was dropped down to 3 L, he is breathing comfortably, he states his coughing is improving, although still does have occasional coughing fits especially with exertion, no phlegm production, continues on Decadron, continues on prophylactic dose Lovenox, his pro-calcitonin was negative at 0.04, he was outside the window for Remdesivir, he continues on multivitamins, appetite is fair, no nausea vomiting or diarrhea, no acute events overnight. His labs have been reviewed, his white blood cell count is 13.8, hemoglobin is 13.9, d-dimer was negative at 0.59, his electrolytes and renal profile were unremarkable, his LDH was 787, and CRP was 3.9, troponin was negative, proBNP was within normal limits at 104. On 11/27/2021 patient seen in follow-up on medical surgical floor, he is breathing much easier today, he is awake and alert, resting comfortably in bed, he is currently on room air with a pulse ox of 92%, vital signs have been stable, no acute events overnight, coughing and shortness of breath have improved, today's labs have been reviewed, his d-dimer 0.98, his inflammatory markers are improved and the LDH is down to 310, and CRP is down to 1.1, his pro-calcitonin level was negative, no acute events overnight Objective - Vital Signs Vital signs: Vital Signs Temp 97.8 F 11/27/21 11:17 Pulse 60 11/27/21 11:17 Resp 19 11/27/21 11:17 BP 115/75 11/27/21 11:17 Pulse Ox 92 L 11/27/21 11:17 Intake & Output 11/26/21 11/27/21 11/27/21 18:59 06:59 18:59 Intake Total 400 400 Balance 400 400 Intake: Intake, IV Titration 400 400 Amount Sodium Chloride 0.9% 1, 400 400 000 ml @ 50 mls/hr IV . Q20H [facility] Rx#:[id number] Other: # Voids 1 - Exam GENERAL EXAM: Alert, very pleasant, 40-year-old white cell, on room air, comfortable in no apparent distress. HEAD: Normocephalic/atraumatic. EYES: Normal reaction of pupils, equal size. Conjunctiva pink, sclera white. NOSE: Clear with pink turbinates. THROAT: No erythema or exudates. NECK: No masses, no JVD, no thyroid enlargement, no adenopathy. CHEST: No chest wall deformity. Symmetrical expansion. LUNGS: Equal air entry with inspiratory crackles CVS: Regular rate and rhythm, normal S1 and S2, no gallops, no murmurs, no rubs ABDOMEN: Soft, nontender. No hepatosplenomegaly, normal bowel sounds, no guarding or rigidity. EXTREMITIES: No clubbing, no edema, no cyanosis, 2+ pulses and upper and lower extremities. MUSCULOSKELETAL: Muscle strength and tone normal. SPINE: No scoliosis or deformity SKIN: No rashes CENTRAL NERVOUS SYSTEM: Alert and oriented -3. No focal deficits, tone is normal in all 4 extremities. PSYCHIATRIC: Alert and oriented -3. Appropriate affect. Intact judgment and insight. - Labs CBC & Chem 7: 11/26/21 06:56 11/26/21 06:56 Labs: Abnormal Lab Results - Last 24 Hours (Table) 11/27/21 11/27/21 Range/Units 07:09 07:09 D-Dimer 0.98 H (<0.60) mg/L FEU Lactate Dehydrogenase 310 H (120-246) U/L C-Reactive Protein 1.10 H (0.00-0.80) mg/dL Assessment and Plan Plan: Assessment: #1. Acute hypoxic respiratory failure related to acute COVID-19 pneumonia, diagnosed in the outpatient setting. Patient presented to the emergency department on 11/24/2021, onset of symptoms was on 11/13/2021. Patient is outside the window for Remdesivir, he is currently on Decadron 6 mg, prophylactic Lovenox, and multivitamins, CT angiogram shows no evidence of pulm onary embolism #2. Elevated inflammatory markers related to the above, improving Plan: Vital signs stable overnight, breathing is improving Patient is on room air No fever or chills Inflammatory markers are improved Tolerating ambulation in the room Stable for discharge home today to complete 10 day course of Decadron Primary care services discharging people on prophylactic dose Eliquis to have milligrams twice daily for 7 days Outpatient follow-up with Dr. Padgett in the office in 2 weeks I performed a history & physical examination of the patient and discussed their management with my nurse practitioner, Suyapa Ramos. I reviewed the nurse practitioner's note and agree with the documented findings and plan of care. Lung sounds are positive for dim breath sounds throughout the lung mace. The findings and the impression was discussed with the patient. I attest to the documentation by the nurse practitioner. Time with Patient: Less than 30
== END 2021-11-27 14:56 | disposition home or self-care (01) | DRG 177 ==
LOC: EC 18:39 → 4SSUR 22:34
PROVIDERS: ADMIT Internal Medicine; ATTEND Internal Medicine
DX: U07.1 COVID-19 (principal); J12.82 Pneumonia due to coronavirus disease 2019; J96.01 Acute respiratory failure with hypoxia; J84.9 Interstitial pulmonary disease, unspecified; U09.9 Post COVID-19 condition, unspecified; Z79.899 Other long term (current) drug therapy
CPT/HCPCS: 36415; 71045; 71046; 71275; 80048; 80053; 83605; 83615; 83735; 83880; 84145; 84484; 85025; 85379; 85610; 85730; 86140; 87635; 93005; 94640; 96361; 96374; 99285

== ENCOUNTER 2022-09-29 19:06 | Emergency (ER) | payer BC ==
[2022-09-29 19:40] VITALS: BP 121/77; PULSE 74; RESP 16; TEMP 98
--- NOTE | 2022-09-29 20:22 | XR ---
EXAMINATION TYPE: XR chest 2V DATE OF EXAM: 09/29/2022 COMPARISON: 11/27/2021 HISTORY: Cough and congestion TECHNIQUE: FINDINGS: Heart and mediastinum are normal. Lungs are clear. Diaphragm is normal. Bony thorax is inta ct. IMPRESSION: Normal chest. There is clearing of the patchy pulmonary infiltrates compared to old exam.
[2022-09-29] MEDS ORDERED: dexAMETHasone 4 MG TAB PO STA (20:36)
--- NOTE | 2022-09-29 20:38 | ED ---
General Adult HPI - General Chief complaint: Upper Respiratory Infection Stated complaint: Covid,Needs Chest xray Time Seen by Provider: 09/29/22 20:20 Source: patient, RN notes reviewed, old records reviewed Mode of arrival: ambulatory Limitations: no limitations - History of Present Illness Initial comments: Patient is a 41-year-old male with past medical history remarkable for COVID-19 pneumonia in November 2021 who presents to the emergency department complaining of active COVID-19 infection. Took a home test. Was positive. He has been having rhinorrhea, congestion. Was concerned due to his prior hospitalization for COVID-19 pneumonia and had a total health visit who recommended that he come to the emergency department for chest x-ray. Denies any productive cough. Endorses fevers that are responsive to Tylenol and Motrin. Denies any nausea, vomiting, diarrhea. Denies any shortness of breath. His no other acute complaints at this time. Presents for chest x-ray. - Related Data Home Medications Medication Instructions Recorded Confirmed Acetaminophen Tab [Tylenol] 1,000 mg PO Q6HR PRN 11/24/21 11/24/21 Albuterol Inhaler [Ventolin Hfa 2 puff INHALATION RT-QID PRN 11/24/21 11/24/21 Inhaler] Ascorbic Acid [Vitamin C] 1,000 mg PO DAILY 11/24/21 11/24/21 Benzonatate [Tessalon Perle] 200 mg PO TID PRN 11/24/21 11/24/21 Ibuprofen [Motrin Ib] 800 mg PO Q8H PRN 11/24/21 11/24/21 Multivitamins, Thera [Multivitamin 1 tab PO DAILY 11/24/21 11/24/21 (formulary)] Previous Rx's Medication Instructions Recorded Apixaban [Eliquis] 2.5 mg PO BID 7 Days #14 tab 11/27/21 dexAMETHasone [Decadron] 6 mg PO DAILY 7 Days #7 tablet 11/27/21 dexAMETHasone [Decadron] 4 mg PO DAILY 3 Days #3 tablet 09/29/22 Allergies Allergy/AdvReac Type Severity Reaction Status Date / Time No Known Allergies Allergy Verified 09/29/22 19:37 Review of Systems ROS Statement: Those systems with pertinent positive or pertinent negative responses have been documented in the HPI. Review of Systems: CONST: Denies fever EYES: Denies blurry vision ENT: Endorses nasal congestion. C/V: Denies Chest pain RESP: Denies shortness of breath GI: Denies abdominal pain : Denies dysuria SKIN: Denies rash. MSK: Denies joint pain. NEURO: Denies headache ROS Other: All systems not noted in ROS Statement are negative. Past Medical History Past Medical History: No Reported History History of Any Multi-Drug Resistant Organisms: None Reported Past Surgical History: No Surgical Hx Reported Past Psychological History: No Psychological Hx Reported Smoking Status: Never smoker Past Alcohol Use History: Occasional Past Drug Use History: None Reported - Past Family History Family Family Medical History: No Reported History General Exam - General Exam Comments Initial Comments: General: Appears in no acute distress. HEAD: Normal with no signs of head trauma. EYES: EOMI ENT: Hearing grossly intact, normal oropharynx. RESPIRATORY: Clear breath sounds bilaterally. No wheezes, rales, or rhonchi. No hypoxia. No respiratory distress. C/V: Regular rate and rhythm. S1 and S2 auscultated, peripheral pulses 2+ and intact throughout ABD: Abd is soft, nontender, nondistended EXT: Normal range of motion, no obvious deformity SKIN: No rashes or lesions observed on exposed skin. NEURO: Alert and oriented 4. Limitations: no limitations Course Vital Signs 09/29/22 19:37 Temperature 98 F Pulse Rate 74 Respiratory 16 Rate Blood Pressure 121/77 O2 Sat by Pulse 98 Oximetry Medical Decision Making - Medical Decision Making Based on patient's presentation and physical exam, he presents complaining of COVID-19 infection. Would like a chest x-ray. Is currently day 2 of symptoms. Covid swab was positive at home. Chest x-ray as interpreted by me showed no acute cardiopulmonary process. No acute infiltrate. Clear lungs. Heart is normal. No bony traumatic injury. At this time I evaluated the patient. Vital signs are within acceptable limits. I do believe it is safe for the patient be discharged home. We discussed his results. We discussed Paxlovid which he refused. He requests steroids which I will provide. He'll be given a dose of Decadron as well as a three-day prescription. We discussed quarantine for 5 days after symptom onset. Quarantine also for at least 24-hour fever free. He was in agreement this plan. He will be given a work note. Strict return precautions were discussed. I will provide the patient with a prescription for Decadron. I instructed the patient to follow up with their PCP in the next 1-3 days. I explained that the patient should return to the emergency department if they experience any worsening symptoms. Strict return precautions were discussed with the patient. The patient expressed understanding of these instructions. I answered all questions that the patient had. The patient was discharged home in good condition with their prescriptions and follow up information. Disposition Clinical Impression: COVID-19 virus infection Disposition: ADMITTED IP TO THIS HOSP Condition: Good Instructions (If sedation given, give patient instructions): COVID-19 (Coronavirus Disease 2019) (ED) Prescriptions: dexAMETHasone [Decadron] 4 mg PO DAILY 3 Days #3 tablet Is patient prescribed a controlled substance at d/c from ED?: No Referrals: Charles Hathaway DO [Primary Care Provider] - 1-2 days Time of Disposition: 20:35
== END 2022-09-29 21:03 | disposition other institution (70) ==
LOC: EC 19:06
DX: U07.1 COVID-19 (principal)
CPT/HCPCS: 71046; 99284; J8540